=== PATIENT | male | born 1965 | race Caucasian/White ===

== ENCOUNTER 2022-07-20 07:42 | Emergency (ER) | payer OTHER ==
[2022-07-20] MEDS ORDERED: Diphtheria,Pertussis(Acell),Tetanus Vaccine 0.5 ML Syringe IM ONE (07:58)
[2022-07-20 08:02] VITALS: BP 131/61; PULSE 79
[2022-07-20] MEDS ORDERED: Bacitracin Oint 1 GM U/D Packet TOP ONE (08:30)
== END 2022-07-20 09:05 | disposition home or self-care (01) ==
LOC: DL.ED 07:42
DX: S61.217A Laceration without foreign body of left little finger without damage to nail, initial encounter (principal); Z23 Encounter for immunization; W26.8XXA Contact with other sharp object(s), not elsewhere classified, initial encounter; Y99.0 Civilian activity done for income or pay
CPT/HCPCS: 73140-F4; 90471; 90715; 99283